=== PATIENT | female | born 1970 | race Caucasian/White ===

== ENCOUNTER → 2016-12-20 | Day surgery (SDC) | payer OTHER ==
[~2016-12-20] VITALS: Ht 162.6 cm; Wt 105.9 kg
[2016-12-20] VITALS (10 sets, daily range): BP systolic 117–140; BP diastolic 70–90; PULSE 65–86; RESP 11–16; O2SAT 96–100
[~2016-12-20] MED LIST: Atropine 0.4 mg/mL Inj IVPUSH PRN; BUSP15TA3 PO; Dexamethasone 4 mg/mL Inj IVPUSH PRN; Dexamethasone 4 mg/mL Inj ONE; EPHEDrine Sulfate 50 mg/mL Inj IVPUSH PRN; HYDROcodone-APAP 5-325 mg Tablet PO PRN; HYDROmorphone 1 mg/mL Inj IVPUSH PRN; Ketamine 10 mg/mL 20 mL Inj ONE; LEVO1TAB17 PO; LIOT25TA3 PO; Labetalol 5 mg/mL 20 mL Inj IV PRN; Lactated Ringer's 1,000 ML IV SCH; Lactated Ringer's 500 ML IV PRN; Lidocaine 2%-Epi 1:100,000 20 mL Inj INFILTRATE ONE; MetoCLOpramide 5 mg/mL 2 mL Inj IVPUSH PRN; Ondansetron 2 mg/mL 2 mL Inj IVPUSH PRN; Ondansetron 2 mg/mL 2 mL Inj ONE; PARO10TA24 PO; Phenylephrine 10,000 mCg/mL Inj IVPUSH PRN; Propofol 10,000 mCg/mL 20 mL Inj ONE; Ropivacaine-PF 0.5% 30 mL Inj INFILTRATE ONE; fentaNYL-PF 50 mCg/mL 2 mL Inj IVPUSH PRN; fentaNYL-PF 50 mCg/mL 2 mL Inj ONE
[2016-12-20] MEDS: Lactated Ringer's 1,000 ML IV SCH ×2 (08:46→10:05)
--- NOTE | 2016-12-20 10:06 | PCM.HPANE ---
Patient Data Date of Service: Dec 20, 2016 Surgeon Admitting Provider: Attending Provider:Gaudencio Sinha DO Primary Care Physician:Elda Mei MD Other Provider:Mary Young Anesthesia Reason for Visit Left Knee Medial Meniscal Tear Ht/WT & BMI Height (Feet): 5 Height (Inches): 4 Weight (Kilograms): 105.9 Body Mass Index 39.00 Allergies Coded Allergies: Sulfa (Sulfonamide Antibiotics) (Verified Allergy, Unknown, rash, 12/12/16) Past Anesthesia History Anesthesia History: Denies:: Abnormal Airway, Anesthesia Reactions (spinal didnt take full effect with labor ), Difficult Intubation, Fam Anesthesia Reaction Diabetes History Hx Diabetes?: No MRSA MRSA: No Medications Hypertension Medication: No Home Meds Incl Beta Lucas: No Reported Medications Buspirone 15 Mg [id number] Mg PO DAILY Ref 0 12/12/16 Paroxetine (Paxil)10 Mg Tab10 Mg PO HS Ref 0 12/12/16 Liothyronine Sodium 25 Mcg [id number] Mcg PO BID 12/12/16 Levonorgestrel/Ethinyl Estradiol (Levora-28)1 Each Tablet1 Tablet PO DAILY #1 PACK 12/12/16 History History of ENT Problems?: No HEENT History: Denies:: Abnormal Airway Cataracts Difficult Intubation Dysphagia Glaucoma Hearing Problem Sinus Problem TMJ Denture Type: None Teeth Condition: Within Normal Limits Hx of Heart Problems?: No Cardiovascular History: Denies:: AICD Abdominal Aortic Aneurism Atrial Fibrillation Cardiac Surgery Chest Pain Congestive Heart Failure Coronary Artery Disease Edema Heart Murmur Hypertension Irregular Heartbeat Pacemaker Peripheral Vascular Rheumatic Fever Hx of Respiratory Problem?: No Respiratory History: Denies:: Asthma COPD Emphysema Oxygen Administration Pneumonia Tuberculosis Use of C-PAP Machine Use of Inhalers / NEBS Hx Neurologic Problems?: No Neurological History: Denies:: Alzheimer's Disease CVA Headaches Multiple Sclerosis Parkinson's Disease Seizures TIA Hx of GI Problems?: No Hx of Problems?: No Genitourinary History: Denies:: Kidney Stones Urinary Tract Infection Female Hx: Denies:: Currently Problems with Breasts? Skin History: Denies:: History Skin Disorders? Pressure Ulcers Hx Musculoskeletal Problems?: Yes Musculoskeletal History: Positive for:: Musculoskeletal Trauma (left knee current admission problem) Osteoarthritis Denies:: Fibromyalgia Rheumatoid Arthritis Systemic Lupus Hx of Psycho/Social Problems?: Yes Psycho Social History: Positive for:: Anxiety Hx Depression Hx Surgeries?: Yes (c section) Hx Any Other Health Problems?: Yes Other History: Positive for:: Thyroid Disease (on rx) Denies:: Cancer History Blood Transfusions: Positive for:: Accept Blood Products? Denies:: Blood Transfusions Hx Diabetes: No Hx Alcohol Use: NoAlcoholic Drinks Per Day: holidays- once to twice yearlyHx Substance Use: NoHave You Smoked inLast 12 mo: No Stop/Bang S-Snoring: Do You Snore Loudly: No T-Tired: feel tired, fatigued: No O-Obsered: Observed not breath: No P-Blood Pressure: treated: No B- Body Mass Index > 35 kg/m2: Yes A- Age over 50: No N- Neck Large Circumference: No G- Gender Male: No SELMA Total Score: 1 SELMA Risk Assessment: Low Risk, <3 Yes Risk Assessment Category Category 1A: Patient has history of documented sleep apnea, and HAS NOT received any narcotic, sedative or anesthesia administration during this stay. Category 1B: Patient has history of documented sleep apnea, and HAS received any narcotic , sedative or anesthesia administration during this stay Category 2: Patient has SUSPECTED Obstructive Sleep Apnea, and HAS received any narcotic , sedative or anesthesia administration during this stay. Category 3: Patient has SUSPECTED Obstructive Sleep Apnea and HAS NOT received narcotic, sedative or anesthesia administration during this stay. Category 4: Outpatient in Procedural Areas with known sleep apnea or who screen positive for High Risk via the STOP/BANG questionnaire. Exam Exam Vital Signs Vital Signs Date Time Temp Pulse Resp B/P Pulse Ox O2 Delivery O2 Flow Rate FiO2 12/20/16 08:27 36.2 72 16 124/79 96 Room Air General Appearance: Alert, Oriented X3, Cooperative, No Acute Distress HEENT/AIRWAY: MP 2 Lungs: Clear to Auscultation, Normal Air Movement Heart: Exam Unremarkable, Regular Rate/Rhythm, No Murmurs/Rubs/Gallops Meds/Labs/Diagnostics Admission Meds Current Medications Lactated Ringer's (Lr) 1,000 ml @ 120 mls/hr [id number] IV Last administered on t 08:46; Start 12/20/16 at 05:00; Stop 12/20/16 at 13:19 Plan Impression Patient chart reviewed, patient interviewed and anesthestic plan with risks, benefits, and alternatives discussed, and informed consent obtained. NPO per Anesth. Guidelines: Yes ASA Physical Status: ASA2 Mod Systemic Disease Anesthetic Plan: GA Bene/Risks/Altern/Consents: Yes HP Complete Prior to Induction: Yes Other Pt recounts Hx of motions sickness; will institute PONV precautions Collin Lopez DO Dec 20, 2016 10:06
--- NOTE | 2016-12-20 11:35 | PCM.ANEP1 ---
Post Anesthesia PACU Phase 1 Assessment Date of Service: Dec 20, 2016 Vital Signs Vital Signs Date Time Temp Pulse Resp B/P Pulse Ox O2 Delivery O2 Flow Rate FiO2 12/20/16 11:20 36.8 69 13 124/81 100 Room Air 12/20/16 11:15 69 13 130/81 100 Simple Mask 8 12/20/16 11:10 71 11 129/78 100 Simple Mask 8 12/20/16 11:05 72 11 126/82 100 Simple Mask 8 12/20/16 11:00 74 14 130/70 100 Simple Mask 8 12/20/16 10:55 36.2 86 13 140/82 96 Simple Mask 8 12/20/16 08:27 36.2 72 16 124/79 96 Room Air Anesthetic Administered: GA Level of Alertness: Awake, talking CHAPMAN's with Equal Strength: Yes Pain: No Nausea or Vomiting: No CV Function & Hydration Stable: Yes Airway Device: LMA rmoved by PACU staff in an atraumatic fashion in my presence. Lungs: Clear to Auscultation, Normal Air Movement Dermatome Level: Full Sensation PACU Phase 2 Assessment Complications: No Patient Instructions Provided: N/A Collin Lopez DO Dec 20, 2016 11:35
--- NOTE | 2016-12-20 13:05 | OP ---
[address] [address] OPERATIVE REPORT PATIENT: PIO CASTREJON : 1970 MR#: [id number] ADMIT: 12/20/2016 JOB ID: [id number] DATE OF SURGERY: 12/20/2016 PREOPERATIVE DIAGNOSIS(ES): Left knee torn medial meniscus. POSTOPERATIVE DIAGNOSIS(ES): Left knee torn medial meniscus. PROCEDURE: Left knee video arthroscopy with partial medial meniscectomy. SURGEON: Gaudencio Sinha DO. LINE PALLETIZER: None. INDICATIONS: Patient is a 46-year-old female with left knee pain, mechanical in nature, and was felt to have a torn medial meniscus. We discussed treatment options for this and she wished to proceed with a knee arthroscopy. We discussed the risks, benefits, and possible complications of surgery including, but not limited to injury to nerves and vessels, infection, bleeding, incomplete relief of symptoms, stiffness, need for additional procedures. The patient had good understanding. All questions were answered and she wished to proceed. PROCEDURE IN DETAIL: Patient was brought to the operating room. She was given an LMA general anesthetic. The left lower extremity was sterilely prepped and draped. An incision was made over the anterolateral knee at the level of joint line and the blunt trocar was introduced into the knee. Inspection was undertaken. 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 A medial portal was established under needle localization and her meniscal tear was resected back to a stable base with a combination of biters and shaver. Her ACL was found to be intact. Her lateral compartment was pristine. Her patellofemoral compartment had some synovitis which was resected and some mild chondromalacia on the patella, C2 changes. The scope was then removed. The portals were closed with interrupted nylon suture. Naropin was added as an adjunct local anesthetic. Sterile dressings were applied. Patient tolerated the procedure well. Blood loss was minimal. POSTOPERATIVE PROTOCOL: Have the patient weightbear to tolerance. Use crutches as needed. Ice and elevate and follow up in two weeks or sooner if needed.
== END | disposition home or self-care (01) ==
LOC: SAS 07:58
PROVIDERS: ATTEND Orthopaedic Surgery
DX: S83.222A Peripheral tear of medial meniscus, current injury, left knee, initial encounter (principal); M22.42 Chondromalacia patellae, left knee; F41.8 Other specified anxiety disorders; M19.90 Unspecified osteoarthritis, unspecified site; E66.01 Morbid (severe) obesity due to excess calories; Z68.41 Body mass index [BMI] 40.0-44.9, adult
CPT/HCPCS: 29881; J1100; J1885; J2250; J2405; J2704; J2795; J3010; J7120